=== PATIENT | female | born 1995 | race Caucasian/White ===

== ENCOUNTER 2018-04-13 18:41 | Emergency (ER) | payer OTHER ==
[~2018-04-13] VITALS: Ht 170.2 cm; Wt 118.8 kg
[~2018-04-13 18:41] MED LIST: BACTRIM DS TAB1 EACH PO; NOHOMEMEDICATIONS; NORCO 5-325 TA1 EACH PO; ULTRAM 50MG TAB50 MG PO
[2018-04-13] MEDS ORDERED: METFORMIN HCL500 MG PO (18:53)
[2018-04-13 19:50] VITALS: BP 118/67
== END 2018-04-13 19:50 | disposition home or self-care (01) ==
LOC: M.ERS 18:41
DX: M25.531 Pain in right wrist (principal); W22.03XA Walked into furniture, initial encounter; Y93.89 Activity, other specified; Y92.89 Other specified places as the place of occurrence of the external cause; Y99.8 Other external cause status